=== PATIENT | male | born 1960 | race Caucasian/White ===

== ENCOUNTER → 2023-07-21 09:11 | Outpatient (REF) | payer MEDICARE, OTHER, SELFPAY | LOC: REG 09:11 | PROVIDERS: ATTENDING PHYSICIAN Specialist | DX: R97.20 Elevated prostate specific antigen [PSA] (principal) | CPT/HCPCS: 36415; 84153 ==

== ENCOUNTER → 2024-08-05 08:59 | Outpatient (REF) | payer MEDICARE, OTHER, SELFPAY ==
[2024-08-05 12:39] LABS: PSA, Total - Screen 3.38 ng/ml (0.0-4.0)
== END ==
LOC: HWLAB 08:59
PROVIDERS: ATTENDING PHYSICIAN Specialist; FAMILY PHYSICIAN Family Medicine
DX: Z12.5 Encounter for screening for malignant neoplasm of prostate (principal)
CPT/HCPCS: 36415; G0103